=== PATIENT | female | born 1985 | race Caucasian/White ===

== ENCOUNTER 2020-04-06 19:46 | Emergency (ER) | payer OTHER, SELFPAY ==
[2020-04-06 19:52] VITALS: BP 120/57; PULSE 57; RESP 16; TEMP 36.8; O2SAT 100; BMI 20.1
--- NOTE | 2020-04-06 19:58 | ED_ITS ---
HPI - Nausea/Vomiting/Diarrhea General Chief complaint: Abdominal Pain Stated complaint: abd pain nausea vomiting Time Seen by Provider: 04/06/20 19:58 Source: patient Mode of arrival: EMS Limitations: no limitations History of Present Illness HPI Narrative: Ate scallops a few days ago now with vomiting since, no diarrhea MD elicited complaint: nausea and vomiting Onset (ago): day(s) Description of vomiting: watery Location of pain: none Related Data Previous Rx's Medication Instructions Recorded ondansetron HCl [Zofran] 4 mg PO Q8H PRN #10 tab 04/07/20 Allergies Allergy/AdvReac Type Severity Reaction Status Date / Time bee pollen [bee stings] Allergy Unknown Unknown Verified 04/06/20 20:29 latex [Latex] Allergy Unknown RASH Verified 04/06/20 20:29 Review of Systems Constitutional: Constitutional: Reports no additional constitutional complaints Eyes: Eyes: Reports no additional eye complaints ENT: Denies dizziness Cardiovascular: Cardiovascular: Reports no additional cardiovascular complaints Respiratory: Respiratory: Reports as per HPI Gastrointestinal: Gastrointestinal: Reports no additional gastrointestinal c omplaints Genitourinary: Genitourinary: Reports no additional female genitourinary complaints Musculoskeletal: Musculoskeletal: Reports no additional musculoskeletal complaints Integumentary/Breasts: Skin/Breast: Denies rash Neurologic: Reports system reviewed and no additional complaints, except as documented, Denies dizziness and Denies Sensory deficit (Neuro) Psychiatric: Psychiatric: Denies anxiety [facility] Past Medical History Medical History (Updated 04/07/20 @ 01:29 by Abran Kruger MD) ACL (anterior cruciate ligament) tear Scoliosis Social History Social History Alcohol intake: never Smoked in Last 30 Days: No Use of substances other than those prescribed or required for medical reasons: Yes Substance Use Type: Marijuana Advance Directives: No Advance Directives Information Provided: Yes Physical Exam Vital Signs: Vital Signs: Vital Signs Temp Pulse Resp BP Pulse Ox 04/07/20 01:19 66 14 90/51 L 99 04/06/20 22:00 98.6 F 73 18 90/45 L 98 04/06/20 21:17 98.8 F 73 18 95/46 L 98 04/06/20 19:52 98.2 F 57 16 120/57 L 100 Body Mass Index 20.1 Const: Other: shaking and diaphoresis General: healthy appearing Nutritional Appearance: average body habitus Orientation/consciousness: oriented to person and patient oriented x3 Limitations: no limitations HENMT: Head: Yes normal to inspection Ears: external ears normal General nose exam: Normal external nose present Mouth: Normal oral and palatal mucosa present and oropharynx normal Throat: Yes posterior oropharynx normal Eyes: General: appearance normal, both eyes and all related structures Neck: Other: supple Neck: Yes normal visual inspection Chest: Chest palpation & inspection: normal inspection of the chest Resp: Auscultation: clear to auscultation bilaterally Cardio: Jugular venous distension: no JVD Rate: regular rate Rhythm: regular rhythm Heart sounds: S1 normal heart sound present and S2 normal heart sound present GI: Other: significant upper abdominal pain and guarding Palpation (GI): Tenderness to palpation present (GI) and No hepatosplenomegaly present Au scultation: normal bowel sounds : General: Yes no CVA tenderness Back/Spine/Pelvis: Back: no CVA tenderness Skin: General skin exam: no rashes or lesions noted Neuro: General: oriented to person and patient oriented x3 Cranial nerves: Yes CN's II-XII intact bilaterally Motor exam (neuro): 5/5 motor strength present throughout Sensory Exam: No Sensory deficit (Neuro) Extrem: General: Yes normal to inspection Psych: Appearance: grossly normal Course Course Course Narrative: CT negative, patient sleeping, awaiting LFTS and lipase Reevaluation(s) Reevaluation #1: Lfts LFTS and lipase are normal will dc home MDM - Nausea/Vomiting/Diarrhea MDM Narrative Medical decision making narrative: labs and ct negative despite elevated WBC. will dc on zoan Lab Data Result diagrams: 04/06/20 21:24 04/06/20 21:24 Labs: Lab Results 04/06/20 04/06/20 Range/Units 21:24 21:24 WBC 17.5 H (4.8-10.8) X10*3/uL RBC 3.98 L (4.20-5.50) X10*6/uL Hgb 11.6 L (12.0-16.0) g/dl Hct 34.6 L (37-47) % MCV 86.9 (80-98) fL MCH 29.1 (27.0-33.0) pg MCHC 33.5 (31.0-35.0) g/dl RDW 13.4 (11.0-16.0) % Plt Count 257 (160-400) X10*3/uL MPV 10.5 (9.4-12.3) fL Immature Gran % (Auto) 0.5 H (0.0-0.4) % Neut % (Auto) 96.2 H (45-73) % Lymph % (Auto) 1.9 L (20-40) % [place] % (Auto) 1.3 L (2-11) % Eos % (Auto) 0.0 (0-4) % Baso % (Auto) 0.1 (0-2) % Lymph # (Auto) 0.3 L (1.2-4.9) X10*3/uL [place] # (Auto) 0.2 (0.1-1.2) X10*3/uL Eos # (Auto) 0.0 (0.0-0.4) X10*3/uL Baso # (Auto) 0.0 (0.0-0.2) X10*3/uL Abs Immat Gran (auto) 0.09 H (0.00-0.03) X10*3/uL Absolute Neuts (auto) 16.8 H (2.0-8.3) X10*3/uL Absolute Nucleated RBC 0.000 (0.0-0.012) X10*3/uL Nucleated RBC % (auto) 0.0 (0.0-0.2) /100WBC Smear Tech's Comments VERIFIED Sodium 138 (135-145) mmol/L Potassium 3.6 (3.3-5.1) mmol/l Chloride 108 (96-108) mmol/L Carbon Dioxide 21 L (22-29) mmol/L Anion Gap 13 (12-20) BUN 10 (9-16) mg/dL Creatinine 0.63 (0.5-1.4) mg/dL Estim Creat Clear Calc 98.3 Estimated GFR > 60 Random Glucose 109 (60-115) mg/dL Calcium 7.7 L (8.4-10.2) mg/dL Total Bilirubin 0.8 (0.0-1.0) mg/dL Direct Bilirubin 0.3 (0.0-0.5) mg/dL AST 17 (5-31) U/L ALT 12 (0-31) U/L Alkaline Phosphatase 43 (39-117) U/L Total Protein 6.1 L (6.5-8.0) g/dL Albumin 3.9 (3.5-5.0) g/dL Lipase 6 L (8-78) U/L Imaging Data CT scan - abdomen: Radiologist's impression: no acute pathology Discharge Plan Discharge Clinical Impression: Gastroenteritis Patient Disposition: Home, Self-Care Instructions: Acute Nausea and Vomiting (ED) Prescriptions: New ondansetron HCl [Zofran] 4 mg tablet 4 mg PO Q8H PRN (Reason: nausea and vomiting) Qty: 10 RF: 0
--- NOTE | 2020-04-06 20:28 | PC.NURSE ---
ACTIVELY VOMITING SINCE TRIAGE. SKIN PWD. MOIST MM. REPORTS UPPER ABD PAIN.
[2020-04-06] MEDS: LORazepam 2 MG/ML VIAL 1 MG IVPUSH (20:29)
[2020-04-06] MEDS: 0.9 % Sodium Chloride 500 ML 1000 ML IV (20:29)
[2020-04-06] MEDS: ondansetron HCL 4 MG/2 ML VIAL IVPUSH (20:30)
[2020-04-06 21:17] VITALS: BP 95/46; PULSE 73; RESP 18; TEMP 37.1; O2SAT 98
[2020-04-06 21:35] LABS: Basophils Percent Auto 0.1 % (0-2); Hematocrit 34.6 % (37-47); Hemoglobin 11.6 g/dl (12.0-16.0); Imm Gran Abs Auto 0.09 X10*3/uL (0.00-0.03); Imm Gran Pct Auto 0.5 % (0.0-0.4); Lymphocytes Absolute Auto 0.3 X10*3/uL (1.2-4.9); Lymphocytes Percent Auto 1.9 % (20-40); MANUAL DIFF FLAG SCAN; Mean Corpuscular HGB Conc 33.5 g/dl (31.0-35.0); Mean Corpuscular Hemoglobin 29.1 pg (27.0-33.0); Mean Corpuscular Volume 86.9 fL (80-98); Mean Platelet Volume 10.5 fL (9.4-12.3); Monocytes Absolute Auto 0.2 X10*3/uL (0.1-1.2); Monocytes Percent Auto 1.3 % (2-11); Neutrophils Absolute Auto 16.8 X10*3/uL (2.0-8.3); Neutrophils Percent Auto 96.2 % (45-73); Platelet Count 257 X10*3/uL (160-400); Red Blood Count 3.98 X10*6/uL (4.20-5.50); Red Cell Distribution Width 13.4 % (11.0-16.0); SCAN SMEAR FLAG 1; White Blood Count 17.5 X10*3/uL (4.8-10.8)
[2020-04-06 21:59] LABS: Anion Gap 13 (12-20); Blood Urea Nitrogen 10 mg/dL (9-16); Calcium 7.7 mg/dL (8.4-10.2); Carbon Dioxide 21 mmol/L (22-29); Chloride 108 mmol/L (96-108); Creatinine Clr Calc Pharmacy 98.3; Estimated Glomerular Filt Rate > 60; Glucose Random 109 mg/dL (60-115); Potassium 3.6 mmol/l (3.3-5.1); Sodium 138 mmol/L (135-145)
[2020-04-06 22:00] VITALS: BP 90/45; PULSE 73; RESP 18; TEMP 37; O2SAT 98
--- NOTE | 2020-04-06 22:21 | PC.NURSE ---
reports feeling better
[2020-04-06 22:30] LABS: SLIDE REVIEW VERIFIED
--- NOTE | 2020-04-07 | CT_ITS ---
EXAMINATION: CT ABDOMEN AND PELVIS NONCONTRAST CLINICAL INFORMATION: Pain COMPARISON: None TECHNIQUE: Multidetector volumetric images were obtained from the superior aspect of the liver through the pubic symphysis . Sagittal and coronal reformatted images were obtained on the technologist's workstation. Oral contrast: No This CT examination was performed using dose optimization techniques as appropriate, variously including the following: *Automated exposure control *Adjustment of mA and/or kV according to patient size (this includes techniques or standardized protocols for targeted exams where dose is matched to indication/reason for exam; i.e. extremities or head) *Use of iterative reconstruction technique DLP: 326 mGy-cm FINDINGS: LUNG BASES: The visualized lung bases are unremarkable. LIVER, GALLBLADDER, AND BILIARY TREE: The liver is normal in size, shape, and attenuation. No focal hepatic lesion or biliary ductal dilatation is present. The gallbladder is unremarkable with no evidence of radiopaque gallstones, gallbladder wall thickening, or obvious pericholecystic inflammatory changes. PANCREAS: Limited evaluation. There is no intravenous oral contrast. Cannot adequately separate from adjacent bowel. There is no convincing evidence of abnormality in the pancreatic region SPLEEN: Unremarkable. ADRENAL GLANDS: Unremarkable. KIDNEYS AND URETERS: There is high density blush in the region of the medullary regions. BLADDER: Unremarkable. GASTROINTESTINAL TRACT: Nonobstructive bowel pattern. A few minimally prominent small bowel loops are seen but overall nonobstructive pattern. No oral contrast. A cannot exclude some edematous change in the proximal small bowel. Enteritis could not be excluded. The appendix is not adequately seen. No definitive finding in the region of the cecum. ABDOMINAL WALL: No significant hernia is appreciated. LYMPH NODES: Normal. VASCULAR: Unremarkable. PELVIC VISCERA: Unremarkable. OSSEOUS STRUCTURES: Unremarkable. IMPRESSION: This exam is limited by lack of intravenous and oral contrast. Cannot exclude some edematous change in the proximal small bowel. Enteritis would be a consideration. High density blushing in the region of the medullary regions of the kidneys. This may indicate nephrocalcinosis. Medullary sponge kidney cannot be excluded.
[2020-04-07 01:09] LABS: Alanine Aminotransferase 12 U/L (0-31); Albumin Level 3.9 g/dL (3.5-5.0); Alkaline Phosphatase 43 U/L (39-117); Aspartate Amino Transferase 17 U/L (5-31); Bilirubin Direct 0.3 mg/dL (0.0-0.5); Bilirubin Total 0.8 mg/dL (0.0-1.0); Lipase 6 U/L (8-78); Total Protein 6.1 g/dL (6.5-8.0)
[2020-04-07] MEDS: ondansetron HCL 4 MG/2 ML VIAL IVPUSH (01:13)
[2020-04-07] MEDS: 0.9 % Sodium Chloride 500 ML 1000 ML IV (01:14)
[2020-04-07 01:19] VITALS: BP 90/51; PULSE 66; RESP 14; O2SAT 99
== END 2020-04-07 02:03 | disposition home or self-care (01) ==
PROVIDERS: Emergency Provider Emergency Medicine; PCP Internal Medicine
DX: K52.9 Noninfective gastroenteritis and colitis, unspecified (principal); Z79.899 Other long term (current) drug therapy
CPT/HCPCS: 36415; 74177; 80048; 80076; 83690; 85025; 96374; 96375; 96376; 99284; J2060; J2405